=== PATIENT | female | born 1985 | race African-American/Black ===

== ENCOUNTER 2019-08-25 13:08 | Outpatient (CLI) | payer OTHER, SELFPAY ==
--- NOTE | ~2019-08-25 | US_ITS ---
EXAMINATION: US OB follow up DATE: 08/25/2019 13:43 INDICATION: Assess growth during third trimester of . TECHNIQUE: Real-time ultrasound of the pelvis was performed. The interpreting radiologist was not pre sent for the study. COMPARISON: None. FINDINGS: There is a single living fetus in vertex presentation. The placenta is posterior fundal. heart rate is 178 beats per minute (bpm). The following biometric data were obtained: BPD: 8.5 cm -> 34 weeks 1 days Head circumference: 31.1 cm -> 34 weeks 5 days Abdominal circumference: 28.5 cm -> 32 weeks 4 days Femur length: 6.6 cm -> 33 weeks 6 days These measurements are concordant. Head circumference to abdominal circumference ratio: 1.09 (normal range 0.95-1.11). Estimated weight: 2159 g (+/-) 324 g. or 4 lbs. 12 oz. (+/-) 11 oz. IMPRESSION: 1. Single living fetus in vertex presentation with heart rate of 178 bpm which is tachycardic. 2. Gestational age by ultrasound of 33 weeks 6 day(s) +/- 2 week(s) 3 day(s) with ultrasound estimate d date of delivery (BESSIE) of 10/07/2019. Estimated weight is 24th percentile by Hadlock criteria when 10/06/2019 is used as the BESSIE. Please correlate with clinical information or earlier ultrasounds f or most accurate BESSIE. Reviewed, dictated and finalized at location A. NET DEV[employer]OPER IMPRESSION: 1. Single living fetus in vertex presentation with heart rate of 178 bpm which is tachycardic. 2. Gestational age by ultrasound of 33 weeks 6 day(s) +/- 2 week(s) 3 day(s) wi th ultrasound estimated date of delivery (BESSIE) of 10/07/2019. Estimated we ight is 24th percentile by Hadlock criteria when 10/06/2019 is used as the BESSIE. P lease correlate with clinical information or earlier ultrasounds for most accur ate BESSIE.
== END 2019-08-25 13:09 | disposition home or self-care (01) ==
LOC: ANHIMG 13:09
PROVIDERS: Visit Provider Obstetrics & Gynecology
DX: O09.40 Supervision of pregnancy with grand multiparity, unspecified trimester (principal); O99.210 Obesity complicating pregnancy, unspecified trimester; O34.10 Maternal care for benign tumor of corpus uteri, unspecified trimester; Z3A.33 33 weeks gestation of pregnancy
CPT/HCPCS: 76816

== ENCOUNTER 2019-08-26 19:00 | Outpatient (RCR) | payer OTHER, SELFPAY ==
[2019-08-26 19:06] VITALS: BP 125/79
[2019-08-26 19:12] VITALS: BP 120/66
[2019-08-26 19:30] VITALS: BP 117/62; PULSE 92
--- NOTE | 2019-08-26 19:56 | PC.NURSE ---
dr sewell, provider javascript application developer, contacted. dr sewell given pt report. tracing reviewed w dr sewell. dr sewell informed there is no record on file for pt. discharge orders received from dr sewell and dr saldivar to go over kick count handout w pt and to instruct pt to call dr vargas Thursday morning
== END 2019-11-15 08:14 | disposition home or self-care (01) ==
LOC: ANHOBOP 19:00
PROVIDERS: Family Provider Obstetrics & Gynecology; Visit Provider Obstetrics & Gynecology
DX: O26.893 Other specified pregnancy related conditions, third trimester (principal); Z3A.34 34 weeks gestation of pregnancy
CPT/HCPCS: 59025